=== PATIENT | male | born 1975 | race Caucasian/White ===

== ENCOUNTER 2021-10-03 06:43 | Emergency (ER) | payer OTHER, SELFPAY ==
--- NOTE | ~2021-10-03 | XR_ITS ---
EXAMINATION: XR abdomen/kub 1V INDICATION: Right flank pain TECHNIQUE: Supine views of the abdomen were obtained on 2 radiographs. COMPARISON: CT from today FINDINGS: There is a 3 mm calcification in the right pelvis at the expected location of the right ure terovesicular junction. The bowel gas pattern is normal. There is mild osteoarthritis of the hips. Ca lcifications are noted in the prostate. IMPRESSION: 1. 3 mm right pelvic calcification in the expected location of the right ureterovesicular junction st one on CT. Reviewed, dictated and finalized at location A. IMPRESSION: 1. 3 mm right pelvic calcification in the expected location of the right ureter ovesicular junction stone on CT.
--- NOTE | ~2021-10-03 | CT_ITS ---
EXAMINATION: CT abdomen pelvis wo con DATE: 10/03/2021 07:15 INDICATION: Right flank pain TECHNIQUE: Computed tomography (CT) of the abdomen and pelvis was performed without intravenous contr ast. The dose-length product (DLP) was 442.53 mGy-cm. Automated exposure control and iterative recons truction technique were employed. COMPARISON: None FINDINGS: Minimal dependent atelectasis is present in the lung bases. The heart size is normal. The l iver is diffusely low in attenuation when compared with the spleen, consistent with hepatic steatosis . The spleen, pancreas, gallbladder, and adrenal glands are normal. There is a 4 mm stone at the righ t ureterovesicular junction which causes mild right hydroureteronephrosis. The left kidney is unremar kable. No pathologically enlarged abdominal or pelvic lymph nodes are identified. There is no free in traperitoneal gas or evidence of bowel obstruction. There is a left inguinal hernia containing fat. M oderate lumbar spondylosis is noted at L3-4 and L4-5. IMPRESSION: 1. 4 mm stone at the right ureterovesicular junction causing mild right hydroureteronephrosis. 2. Diffuse hepatic steatosis. Reviewed, dictated and finalized at location A. IMPRESSION: 1. 4 mm stone at the right ureterovesicular junction causing mild right hydrour eteronephrosis. 2. Diffuse hepatic steatosis.
[2021-10-03 06:48] VITALS: BP 158/110; PULSE 98; RESP 20; TEMP 36.8; O2SAT 100
--- NOTE | 2021-10-03 06:51 | ED.ABDPAIN ---
HPI - Abdominal Pain General Chief Complaint: Abdominal Pain <Ashwin Pina DO - Last Filed: 10/03/21 07:03> Stated Complaint: R sided kidney stone <Ashwin Pina DO - Last Filed: 10/03/21 07:03> Time Seen by Provider: 10/03/21 06:49 <Ashwin Pina DO - Last Filed: 10/03/21 07:03> Source: patient <Ashwin Pina DO - Last Filed: 10/03/21 07:03> Mode of arrival: ambulatory <Ashwin Pina DO - Last Filed: 10/03/21 07:03> Limitations: no limitations <Ashwin Pina DO - Last Filed: 10/03/21 07:03> History of Present Illness HPI narrative: 45-year-old male presents emergency room with acute onset of right-sided flank and abdominal pain. Patient's had 2 prior kidney stones and states this is the same type pain. He is able to pass his prior stones. He is having excruciating pain at this time associated nausea and vomiting. Denies any urinary complaints prior to this. He did not take anything for the pain prior to coming the emergency room. <Ashwin Pina DO - Last Filed: 10/03/21 07:03> Related Data Allergies/Adverse Reactions: Allergies Allergy/AdvReac Type Severity Reaction Status Date / Time Penicillins Allergy Hives Verified 10/03/21 06:51 <Ashwin Pina DO - Last Filed: 10/03/21 07:03> Review of Systems Review of Systems: CONSTITUTIONAL: Denies fever, chills, or sweats. EYES: Denies visual changes, redness, or discharge. ENT: Denies rhinorrhea, congestion, sore throat, or otalgia. CARDIOVASCULAR: Denies chest pain, palpitations, or edema. RESPIRATORY: Denies cough or dyspnea. GASTROINTESTINAL: Having abdominal pain and right flank pain with associated nausea vomiting GENITOURINARY: Denies dysuria or hematuria. SKIN: Denies rash or itching. MUSCULOSKELETAL: Denies back pain, joint pain, or myalgia. NEUROLOGIC: Denies headache, numbness, or weakness. PSYCHIATRIC: Denies anxiety or depression. <Ashwin Pina DO - Last Filed: 10/03/21 07:03> [facility] Past Medical History Medical History: Medical History (Updated 10/03/21 @ 07:51 by Aure Maloney MD) Diabetes mellitus Kidney stone <Ashwin Pina DO - Last Filed: 10/03/21 07:03> Exam Narrative: APPEARANCE: Patient noted to be in moderate distress secondary to pain. He is obese. Head normocephalic and atraumatic. EYES: PERRLA/EOMI, conjunctivae very clear. NOSE: Normal with no drainage EARS:TMS clear Sarah Villalobos, with good light reflex. THROAT: Pharynx clear, no exudate. NECK: Supple. No adenopathy, no masses. RESPIRATORY: Airway patent, respirations nonlabored. Clear to auscultation bilaterally, no rales, rhonchi, wheezing. CARDIOVASCULAR: Regular rate and rhythm without murmurs, rubs, or gallops. ABDOMINAL: Soft with some right CVA tenderness. No rebound or guarding. No masses Musculoskeletal: Moves all extremities. Strength/ROM intact, No edema, No calf tenderness. NEURO: Alert. Cranial nerves II through XII intact. Normal gait. Good coordination. Nonfocal examination. SKIN:: Warm, dry. Normal Color PSYCHIATRIC: Normal affect/mood, normal interaction <Ashwin Pina DO - Last Filed: 10/03/21 07:03> Course Reevaluation(s) Reevaluation #1: PAtient states his pain has resolved at this current time. I discussed CT findings. He is receiving IVF at this time and we are awaiting his urine results. I also discussed with patient about his abnormal kidney function and this may be due to dehydration or his diabetes. I encouraged increased fluid intake. <Aure Maloney MD - Last Filed: 10/03/21 08:40> Date: 10/03/21 <Aure Maloney MD - Last Filed: 10/03/21 08:40> Time: 07:48 <Aure Maloney MD - Last Filed: 10/03/21 08:40> Vital Signs Vital signs: Vital Signs Temperature 98.2 F 10/03/21 06:48 Pulse Rate 98 10/03/21 06:48 Respiratory Rate 20 10/03/21 06:48 Blood Pressure 158/110 H 10/03/21 06:48 Pulse Oximetry 100 10/03
[2021-10-03] MEDS: SODIUM CHLORIDE 0.9% IV 1,000 ML 999 ML IV CONT (06:53)
[2021-10-03] MEDS: KETOROLAC 30 MG/ML VIAL (*BKC) IV PUSH (06:54)
[2021-10-03] MEDS: MORPHINE SULFATE (*CRX) 4 MG/ML INJ IV PUSH (06:54)
[2021-10-03] MEDS: ONDANSETRON INJ 4 MG/2 ML VIAL IV PUSH (06:54)
[2021-10-03 07:03] LABS: Basophils Percent Auto 0.4 % (0.2-1.2); Eosinophils Absolute Auto 0.1 K/mm3 (0-0.3); Eosinophils Percent Auto 1.1 % (0-4.4); Hematocrit 45.8 % (42.0-52.0); Hemoglobin 15.4 g/dL (14.0-18.0); Immature Granulocyte Absolute 0.03 K/mm3 (0.00-0.031); Immature Granulocyte Percent A 0.3 % (0-0.5); Lymphocytes Absolute Auto 3.03 K/mm3 (0.9-3.2); Lymphocytes Percent Auto 30.4 % (18.3-44.2); Mean Corpuscular HGB Conc 33.6 g/dl (32-36); Mean Corpuscular Hemoglobin 30.1 pg (26-34); Mean Corpuscular Volume 89.6 fl (80-100); Mean Platelet Volume 11.3 fl (7.4-10.4); Monocytes Percent Auto 9.6 % (2.6-8.5); Neutrophils Absolute Auto 5.8 K/mm3 (1.3-6.7); Neutrophils Percent Auto 58.2 % (45.5-73.1); Platelet Count Result 315 k/mm3 (150-375); Red Blood Count 5.11 M/mm3 (4.6-6.20); Red Cell Distribution Width 12.8 % (11.5-14.5)
[2021-10-03 07:21] LABS: Alanine Aminotransferase 58 U/L (4-50); Albumin Level 4.8 g/dL (3.5-5.1); Alkaline Phosphatase 47 U/L (38-126); Anion Gap 8 mmol/L (8-16); Aspartate Amino Transferase 37 U/L (17-59); Bilirubin,Total 0.3 mg/dL (0.2-1.3); Blood Urea Nitrogen 26 mg/dL (9-20); Calcium 9.3 mg/dL (8.4-10.2); Carbon Dioxide 26 mmol/L (22-30); Chloride 104 mmol/L (98-107); Estimated CRCL calculation 68 ml/min; Estimated Glomerular Filt Rate 51; Glucose 197 mg/dL (65-110); Potassium 4.2 mmol/L (3.4-5.0); Sodium 138 mmol/L (137-145)
[2021-10-03] MEDS: TAMSULOSIN HCL 0.4 MG CAPSULE PO (07:49)
[2021-10-03 08:00] LABS: Appearance Urine Clear (Clear); Bilirubin Urine Negative (Negative); Color Urine Yellow (Yellow); Glucose Urine UA Negative (Negative); Ketones Urine Negative (Negative); Leukocyte Esterase Ur Negative LEU/UL (Negative); Nitrate Urine Negative (Negative); Protein Urine Negative (Negative); Specific Grav Ur >= 1.030 (1.001-1.035); Urobilinogen Urine 0.2 mg/dL (<2.0)
[2021-10-03 08:06] LABS: Add Urine Microscopic? YES; Blood Urine Trace-Intact (Negative); Mucus Urine Rare /lpf; Squamous Epithelial Cell Urine Rare /hpf (Few); WBC Urine 0-3 /hpf
== END 2021-10-03 08:31 | disposition home or self-care (01) ==
PROVIDERS: Emergency Medicine; Emergency Provider General Practice; PCP Emergency Medicine
DX: N13.2 Hydronephrosis with renal and ureteral calculous obstruction (principal); E11.9 Type 2 diabetes mellitus without complications; Z87.442 Personal history of urinary calculi; K76.0 Fatty (change of) liver, not elsewhere classified
CPT/HCPCS: 36415; 74018; 74176; 80053; 81001; 85025; 96361; 96374; 96375; 99284; A9270; J1885; J2270; J2405; J7030